=== PATIENT | female | born 1975 | race Two or more races ===

== ENCOUNTER 2019-12-03 17:59 | Emergency (ER) | payer MEDICAID ==
[~2019-12-03] VITALS: Ht 157.5 cm; Wt 127.0 kg
[~2019-12-03 17:59] MED LIST: AMLO5TAB4; BENA40TA65; BUSCAPINA; CLON0.1T; CLOTRIMAZOLE; EXCEDRIN PM; HYDROCORTISONE CREAM; METO-540; NITRO; PEN V K; SIMV20TA6; [UNRECOGNIZED DRUG - OTHER]
[2019-12-03 18:15] VITALS: BP_SYST 207
--- NOTE | 2019-12-03 18:15 | NUR ---
Patient to ER bed 07 to gown for evaluation. Side rails up.
--- NOTE | 2019-12-03 18:16 | NUR ---
Pt brought by self, A&Ox4, pt presents to ER with L earache and high blood pressure, pt afebrile, skin pink and warm, cap refill <3, VSS, BP 161/94.
--- NOTE | 2019-12-03 18:20 | NUR ---
Dr Bush at bedside examining patient
[2019-12-03] MEDS ORDERED: hydrALAZINE HCL 20 MG/ML VIAL IVP ONE (18:30)
[2019-12-03] MEDS ORDERED: ENALAPRILAT DIHYDRATE 1.25 MG/ML VIAL IVP ONE (18:30)
[2019-12-03] MEDS ORDERED: MECLIZINE HCL 25 MG TABLET (ANITVERT) PO ONE (18:45)
[2019-12-03 18:55] VITALS: BP_SYST 158
--- NOTE | 2019-12-03 18:57 | NUR ---
Patient given written and verbal discharge instructions and verbalizes understanding. ER MD discussed with patient the results and treatment provided. Patient in stable condition. ID arm band removed. Rx of Augmentin and Antivert given. Patient educated on pain management and to follow up with PMD. Pain Scale 2/10 tolerable for patient. Opportunity for questions provided and answered. Medication side effect fact sheet provided.
== END 2019-12-03 18:55 | disposition home or self-care (01) ==
LOC: SED 17:59
DX: H66.92 Otitis media, unspecified, left ear (principal); R42 Dizziness and giddiness; I10 Essential (primary) hypertension; Z87.440 Personal history of urinary (tract) infections; Z79.899 Other long term (current) drug therapy
CPT/HCPCS: 99283; J8597

== ENCOUNTER 2019-12-15 07:07 | Emergency (ER) | payer MEDICAID, SELFPAY ==
[~2019-12-15] VITALS: Ht 157.5 cm; Wt 127.0 kg
--- NOTE | 2019-12-15 07:10 | NUR ---
Pt placed on tent at this time
--- NOTE | 2019-12-15 07:12 | NUR ---
Pt brought by self,A&Ox4, pt presents to ER with headache, cough and congestion, pt has a recent ear infection, pt also has Hx of HTN, skin pink and warm, cap refill<3, VSS, respirations even and unlabored.
[2019-12-15 07:28] VITALS: BP_SYST 222
[2019-12-15] MEDS ORDERED: cloNIDine HCL 0.1 MG TABLET PO ONE (07:45)
--- NOTE | 2019-12-15 08:45 | NUR ---
Pt BP improving at this time, states headache is getting better , MD notified.
[2019-12-15 09:13] VITALS: BP_SYST 166
--- NOTE | 2019-12-15 09:14 | NUR ---
Patient given written and verbal discharge instructions and verbalizes understanding. ER MD discussed with patient the results and treatment provided. Patient in stable condition. ID arm band removed. No Rx given. Patient educated on pain management and to follow up with PMD. Pain Scale 3/10. Opportunity for questions provided and answered. Medication side effect fact sheet provided.
== END 2019-12-15 09:13 | disposition home or self-care (01) ==
LOC: SED 07:07
DX: U07.1 COVID-19 (principal); I16.0 Hypertensive urgency
CPT/HCPCS: 99283; U0003; C9803-CS

== ENCOUNTER 2020-05-09 18:22 | Inpatient (IN) | payer MEDICAID, SELFPAY ==
[~2020-05-09] VITALS: Ht 157.5 cm; Wt 126.6 kg
[~2020-05-09 18:22] MED LIST changes: +SIMV-43; -SIMV20TA6
[2020-05-09 18:36] VITALS: BP_SYST 148
--- NOTE | 2020-05-09 18:40 | NUR ---
Patient triaged and placed in waiting room. VSS and patient appears in no acute distress at this time. Awaiting available bed, and MD notified of need for MSE.
[2020-05-09 19:09] LABS: LYMPHOCYTES # (AUTO) 2.4 K/uL (1.0-5.5)
[2020-05-09 19:19] LABS: MONOCYTES # (AUTO) 0.8 K/uL (0.0-1.0)
[2020-05-09 19:29] LABS: CALCIUM 8.7 mg/dL (8.4-11.0); CREATININE 0.89 mg/dL (0.55-1.30); POTASSIUM 3.5 mmol/L (3.5-5.1)
[2020-05-09 19:31] LABS: BASOPHILS % (AUTO) 0.4 % (0.0-2.0); EOSINOPHILS # (AUTO) 0.1 K/uL (0.0-0.4); EOSINOPHILS % (AUTO) 1.3 % (0.0-4.0); HEMATOCRIT 37.6 % (36-48); LYMPHOCYTES % (AUTO) 22.2 % (20.5-51.5); MEAN CORPUSCULAR HEMOGLOBIN 24 pg (27-31); MEAN CORPUSCULAR HGB CONC 32 % (32-36); MEAN CORPUSCULAR VOLUME 75 fL (79.0-98.0); MONOCYTES % (AUTO) 7.2 % (1.7-9.3); NEUTROPHILS # (AUTO) 7.6 K/uL (1.8-7.7); NEUTROPHILS % (AUTO) 68.9 % (40.0-70.0); PLATELET COUNT (AUTO) 296 K/uL (130-430); RED BLOOD CELL COUNT(AUTO) 5.02 MIL/uL (4.2-6.2); RED CELL DISTRIBUTION WIDTH 15.5 % (9.0-15.0)
[2020-05-09 19:36] LABS: ALBUMIN 3.6 g/dL (3.4-4.8); TOTAL BILIRUBIN 0.2 mg/dL (0.0-1.0)
[2020-05-09 19:43] LABS: BILIRUBIN,URINE NEGATIVE (NEGATIVE); COLOR,URINE YELLOW (YELLOW); GLUCOSE,URINE NEGATIVE (NEGATIVE); KETONES,URINE NEGATIVE (NEGATIVE); LEUKOCYTE ESTERASE ,URINE NEGATIVE (NEGATIVE); NITRITE, URINE NEGATIVE (NEGATIVE); PROTEIN URINE NEGATIVE (NEGATIVE); UROBILINOGEN,URINE 0.2 (0.2-1.0)
[2020-05-09 19:46] LABS: BLOOD, URINE TRACE (NEGATIVE); CLARITY/URINE SLIGHTLY HAZY (CLEAR)
--- NOTE | 2020-05-09 19:48 | NUR ---
Sumanth bennett in EDM - 05/09/20 at 1949 by SDEDCJM MARYANN Mcgarry at bedside examining patient.
--- NOTE | 2020-05-09 19:48 | NUR ---
Patient to ER bed 01 to gown for evaluation. Side rails up. Report given to BUBBA FERNANDEZ
--- NOTE | 2020-05-09 19:48 | NUR ---
ER at bedside examining patient.
[2020-05-09 19:52] LABS: BACTERIA,URINE FEW /HPF (None Seen); MUCUS,URINE None Seen /LPF (None Seen); RBC,URINE 0-3 /HPF (0-3); WBC,URINE 0-3 /HPF (0-3)
[2020-05-09] MEDS ORDERED: NACL 0.9% 1,000 ML IV ONE (20:00)
--- NOTE | 2020-05-09 20:00 | NUR ---
# 20 gauge angiocath placed to LEFT WRIST. Use of asceptic technique. Opsite placed over site. Blood return noted. Blood for lab drawn from site. Flushed with 10 cc of normal saline. No evidence of infiltration noted. Patient tolerated well.
[2020-05-09] MEDS ORDERED: ONDANSETRON HCL 4 MG/2 ML VIAL IVP ONE (20:15)
[2020-05-09] MEDS ORDERED: MORPHINE 4 MG/ML INJ. SYRINGE IVP ONE (20:15)
[2020-05-09] MEDS ORDERED: metroNIDAZOLE 500 mg/NS 100 ML IV ONE (20:15)
--- NOTE | 2020-05-09 20:16 | NUR ---
COVID SWAB COLLECTED AND SENT TO LAB.
[2020-05-09] MEDS ORDERED: cefTRIAXone 2 GM VIAL ONE (20:17)
--- NOTE | 2020-05-09 20:30 | NUR ---
Blood cultures drawn, prior to administration of antibiotic.
--- NOTE | 2020-05-09 20:36 | NUR ---
Assumed care of patient, report received. Introduced self to patient, positioned for comfort and safety w/ bed to low position sr up. Patient states has been having mid abd pain ongonig x4 days w/ decreased in appetite and mild nausea. patient started on iv abx and given pain medication. Continue to monitor patient level of comfort. Will observe for any adverse reaction. Iv site patent and intact.
--- NOTE | 2020-05-09 20:53 | NUR ---
RECEIVED ADMIT ORDERS FROM DR. HENSLEY.
--- NOTE | 2020-05-09 20:56 | NUR ---
SPOKE WITH PSYCHOLOGY TEACHERPAGE TO REQUEST [facility] BED.
--- NOTE | 2020-05-09 20:57 | NUR ---
Patient will be admitted to care of GEREBR. Admitted to M/S unit. Will go to room 106B. Belongings list completed. Complete and up to date summary report printed. SBAR report to be given at bedside with opportunity for questions.
[2020-05-09] MEDS ORDERED: ENALAPRILAT DIHYDRATE 1.25 MG/ML VIAL ONE (21:21)
--- NOTE | 2020-05-09 21:25 | NUR ---
patient medicated as ordered with 2.5mg of Vasotec ivp for elevated b/p 174/118. Patient w/ no neuro focal deficits or symptoms. Will observe for any adverse reaction. Bed to low position sr up, continue to monitor level of comfort and b/p
[2020-05-09] MEDS ORDERED: ENALAPRILAT DIHYDRATE 1.25 MG/ML VIAL IVP ONE (21:30)
[2020-05-09] MEDS ORDERED: CARV25TA55 PO (21:31)
[2020-05-09] MEDS ORDERED: LIP20 PO (21:31)
[2020-05-09] MEDS ORDERED: TRIA1TAB96 PO (21:31)
--- NOTE | 2020-05-09 21:39 | NUR ---
Report called and given to Fallon MAC who was informed that patient b/p 174/118 but was medicated w/ vasotec 2.5mg ivp. Will retake b/p at 2200, should b/p be in a downward trend patient will be transferred to 106B but if no change in b/p will reassess patient till b/p becomes stable. Fallon verbalized understanding.
--- NOTE | 2020-05-09 22:16 | NUR ---
Left arm b/p noted at 143/91 after being medicated w/ Vasotec 2.5mg ivp. patient w/ no adverse reaction noted to medication. No neuro focal deficits noted. OK to transfer to Med/Surg.
--- NOTE | 2020-05-09 22:17 | NUR ---
Patient will be admitted to care of MD Hamlin/Shira. Admitted to unit. Will go to room . Belongings list completed. Complete and up to date summary report printed. SBAR report to be given at bedside with opportunity for questions.
--- NOTE | 2020-05-09 22:29 | NUR ---
ADMISSION NOTE Received patient from ER via theodora, received report from BUBBA RIDLEY. Patient admitted with diagnosis of Diverticulitis. Patient oriented to hospital routine, call light, toileting and safety-patient verbalized understanding.
[2020-05-09 22:59] VITALS: BP_SYST 173
[2020-05-09] MEDS ORDERED: MORPHINE 4 MG/ML INJ. SYRINGE IVP PRN (23:15)
[2020-05-09] MEDS ORDERED: HYDROcodone/ACETAMIN 5-325 MG TAB (NORCO/ VICODIN) PO PRN (23:15)
[2020-05-09] MEDS ORDERED: ONDANSETRON HCL 4 MG/2 ML VIAL IVP PRN (23:15)
[2020-05-09] MEDS ORDERED: ALBUTEROL SULFATE 0.083% 2.5 MG/3 ML VIAL.NEB INH PRN (23:15)
[2020-05-09] MEDS ORDERED: NALOXONE HCL 0.4 MG/ML AMP (NARCAN) IVP PRN (23:15)
[2020-05-10] VITALS (7 sets, daily range): BP systolic 121–150
[2020-05-10] MEDS ORDERED: PIPERACILLIN/TAZOBACTAM 3.375 GM/VIAL (ZOSYN) IV ONE (00:23)
[2020-05-10] MEDS: NACL 0.9% 1,000 ML IV SCH ×3 (00:45→15:37)
[2020-05-10] MEDS: PIPERACILLIN/TAZO 3.375/DEX-IS 50 ML IV SCH ×4 (00:46→17:24)
--- NOTE | 2020-05-10 02:53 | NUR ---
Rounds: Patient is sleeping comfortably in bed. No acute distress on room air, even and unlabored breathing. IV fluids infusing well without infiltration. Call light is with patient. Will continue to monitor.
[2020-05-10] MEDS: ACETAMINOPHEN 325 MG TABLET PO PRN ×2 (04:33→09:29)
[2020-05-10 06:34] LABS: BASOPHILS % (AUTO) 0.3 % (0.0-2.0); EOSINOPHILS # (AUTO) 0.1 K/uL (0.0-0.4); EOSINOPHILS % (AUTO) 1.5 % (0.0-4.0); HEMATOCRIT 34.8 % (36-48); HEMOGLOBIN 11.4 g/dL (12.0-16.0); LYMPHOCYTES # (AUTO) 1.8 K/uL (1.0-5.5); LYMPHOCYTES % (AUTO) 20.4 % (20.5-51.5); MEAN CORPUSCULAR HEMOGLOBIN 24 pg (27-31); MEAN CORPUSCULAR HGB CONC 33 % (32-36); MEAN CORPUSCULAR VOLUME 74 fL (79.0-98.0); MONOCYTES # (AUTO) 0.6 K/uL (0.0-1.0); MONOCYTES % (AUTO) 6.5 % (1.7-9.3); NEUTROPHILS # (AUTO) 6.3 K/uL (1.8-7.7); NEUTROPHILS % (AUTO) 71.3 % (40.0-70.0); PLATELET COUNT (AUTO) 272 K/uL (130-430); RED BLOOD CELL COUNT(AUTO) 4.68 MIL/uL (4.2-6.2); RED CELL DISTRIBUTION WIDTH 15.4 % (9.0-15.0); WHITE BLOOD COUNT (AUTO) 8.8 K/uL (4.8-10.8)
--- NOTE | 2020-05-10 06:39 | NUR ---
Closing note: Patient is awake in bed, no acute distress. Even, unlabored breathing on room air. IV fluids infusing without infiltration. All needs met. Safety, fall precautions in place. Will endorse care to dayshift RN.
[2020-05-10 07:14] LABS: ALBUMIN 3.1 g/dL (3.4-4.8); CALCIUM 8.5 mg/dL (8.4-11.0); CREATININE 0.89 mg/dL (0.55-1.30); POTASSIUM 3.7 mmol/L (3.5-5.1); TOTAL BILIRUBIN 0.6 mg/dL (0.0-1.0)
[2020-05-10] MEDS ORDERED: SIMVASTATIN 20 MG TABLET PO SCH (09:00)
[2020-05-10] MEDS ORDERED: PANTOPRAZOLE SODIUM 40 MG/VIAL (PROTONIX) IVP SCH (09:00)
[2020-05-10] MEDS ORDERED: ATORVASTATIN 20 MG TABLET PO SCH (09:00)
[2020-05-10] MEDS ORDERED: CARVEDILOL 25 MG TABLET (COREG) PO SCH (09:00)
[2020-05-10] MEDS ORDERED: LISINOPRIL 10 MG TABLET (PRINIVIL) PO SCH (09:00)
[2020-05-10] MEDS ORDERED: METOPROLOL SUCCINATE 25 MG TAB.SR.24H (TOPROL XL) PO SCH (09:00)
--- NOTE | 2020-05-10 09:49 | NUR ---
CONSULTATION PAGED/CALLED Reason for Consultation: DIVERTICULITIS Person Who was Notified: BRANDON Consulting Physician: TAMELA DUNLAP Ordering Physician: GERBER
--- NOTE | 2020-05-10 16:13 | NUR ---
Dr. Victor here to assess pt for surgical consult. Pt cleared by Dr. Victor for discharge if pt tolerates dinner. Paged Dr. Pope re: the same. Awaiting response. Addendum: 05/10/20 at 1616 by [facility] print shop stenographer Dr. DUNLAP here to assess pt for surgical consult. Pt cleared by Dr. DUNLAP for discharge if pt tolerates dinner. Paged Dr. Pope re: the same. Awaiting response. here to assess pt for surgical consult. Pt cleared by Dr. Victor for discharge if pt tolerates dinner. Paged Dr. Niko levine: the same. Awaiting response.
--- NOTE | 2020-05-10 16:16 | NUR ---
Notified Dr. Pope re: pt cleared by Dr. Miramontes for discharge with oral antibiotics if pt's tolerates dinner. See new orders.
--- NOTE | 2020-05-10 16:47 | NUR ---
PAGED PAGED GERBER DAVIDSON RAJNISH AT [phone] SPOKE WITH NAYAN.
[2020-05-10] MEDS ORDERED: METR500T PO (17:00)
[2020-05-10] MEDS ORDERED: LEVO500T89 PO (17:00)
--- NOTE | 2020-05-10 18:41 | NUR ---
Discharge instructions given to pt. Pt verbalized understanding. PIV removed. NO adverse events during shift. Pt safety maintained during shift.
--- NOTE | 2020-05-10 18:52 | NUR ---
Accompanied pt via W/C to personal vehicle. Pt's son picked up pt. Pt safely discharged.
== END 2020-05-10 18:52 | disposition home or self-care (01) | DRG 244 ==
LOC: SED 18:22 → SMU 20:53
PROVIDERS: ADMIT Internal Medicine Hospice and Palliative Medicine; ATTEND Internal Medicine Hospice and Palliative Medicine
DX: K57.92 Diverticulitis of intestine, part unspecified, without perforation or abscess without bleeding (principal); E11.9 Type 2 diabetes mellitus without complications; I10 Essential (primary) hypertension; E78.5 Hyperlipidemia, unspecified; Z20.828 Contact with and (suspected) exposure to other viral communicable diseases; E78.00 Pure hypercholesterolemia, unspecified; Z79.899 Other long term (current) drug therapy; Z90.49 Acquired absence of other specified parts of digestive tract; Z83.3 Family history of diabetes mellitus; Z98.84 Bariatric surgery status
CPT/HCPCS: 36415; 76376; 80053; 81000-TC; 83605; 85025; 87040-TC; 96365; 96375; 99285; C9113; J0696; J2270; J2405; J2543; J3490

== ENCOUNTER 2021-11-11 20:36 | Inpatient (IN) | payer MEDICAID ==
[~2021-11-11] VITALS: Ht 157.5 cm; Wt 133.4 kg
[~2021-11-11 20:36] MED LIST changes: +CARV25TA55 PO; +LEVO500T90 PO; +LIP20 PO; -METO-540; +METR500T PO; -SIMV-43; +TRIA1TAB96 PO
[2021-11-11 20:54] VITALS: BP_SYST 163
[2021-11-11 22:12] LABS: BASOPHILS % (AUTO) 0.3 % (0.0-2.0); EOSINOPHILS # (AUTO) 0.1 K/uL (0.0-0.4); EOSINOPHILS % (AUTO) 0.5 % (0.0-4.0); HEMATOCRIT 37.8 % (36-48); HEMOGLOBIN 12.8 g/dL (12.0-16.0); LYMPHOCYTES # (AUTO) 2.1 K/uL (1.0-5.5); LYMPHOCYTES % (AUTO) 14.3 % (20.5-51.5); MEAN CORPUSCULAR HEMOGLOBIN 25 pg (27-31); MEAN CORPUSCULAR HGB CONC 34 % (32-36); MEAN CORPUSCULAR VOLUME 73 fL (79.0-98.0); MONOCYTES # (AUTO) 1.2 K/uL (0.0-1.0); MONOCYTES % (AUTO) 8.1 % (1.7-9.3); NEUTROPHILS # (AUTO) 11.1 K/uL (1.8-7.7); NEUTROPHILS % (AUTO) 76.8 % (40.0-70.0); PLATELET COUNT (AUTO) 407 K/uL (130-430); RED CELL DISTRIBUTION WIDTH 15.9 % (9.0-15.0); WHITE BLOOD COUNT (AUTO) 14.4 K/uL (4.8-10.8)
[2021-11-11 22:38] LABS: CALCIUM 8.3 mg/dL (8.4-11.0); CREATININE 2.44 mg/dL (0.55-1.30); POTASSIUM 3.4 mmol/L (3.5-5.1)
[2021-11-11 22:44] LABS: ALBUMIN 3.4 g/dL (3.4-4.8); TOTAL BILIRUBIN 0.3 mg/dL (0.0-1.0)
[2021-11-11] MEDS ORDERED: MORPHINE 4 MG INJ. 4 MG/ML VIAL IVP ONE (23:45)
[2021-11-11] MEDS ORDERED: ONDANSETRON HCL 4 MG/2 ML VIAL IVP ONE (23:45)
[2021-11-11] MEDS ORDERED: NACL 0.9% 1,000 ML IV ONE (23:45)
[2021-11-12] MEDS ORDERED: LOSA100T3 PO (03:49)
[2021-11-12] MEDS ORDERED: METF-518 PO (03:51)
[2021-11-12] MEDS ORDERED: LIP20 PO (03:51)
[2021-11-12] MEDS ORDERED: HYG25 PO (03:51)
[2021-11-12] MEDS ORDERED: COR25 PO (03:55)
[2021-11-12] MEDS ORDERED: TRIA1CAP6 PO (03:55)
[2021-11-12] MEDS ORDERED: TRIA1TAB96 PO (03:55)
[2021-11-12 03:57] LABS: BILIRUBIN,URINE 1+ (NEGATIVE); CLARITY/URINE CLEAR (CLEAR); COLOR,URINE YELLOW (YELLOW); GLUCOSE,URINE NEGATIVE (NEGATIVE); KETONES,URINE 1+ (NEGATIVE); LEUKOCYTE ESTERASE ,URINE TRACE (NEGATIVE); NITRITE, URINE NEGATIVE (NEGATIVE); PROTEIN URINE 1+ (NEGATIVE); UROBILINOGEN,URINE 0.2 (0.2-1.0)
[2021-11-12 04:00] LABS: BLOOD, URINE TRACE (NEGATIVE)
[2021-11-12 04:31] LABS: BACTERIA,URINE MODERATE /HPF (None Seen); RBC,URINE 50-80 /HPF (0-3); WBC,URINE 80-100 /HPF (0-3); YEAST,URINE Few /HPF (None Seen)
[2021-11-12 04:32] LABS: MUCUS,URINE 3+ /LPF (None Seen)
[2021-11-12] MEDS ORDERED: NACL 0.9% 1,000 ML IV ONE (05:30)
[2021-11-12] MEDS ORDERED: PIPERACILLIN/TAZO 3.375 GM in NS 50 ML IV ONE (05:45)
[2021-11-12] MEDS ORDERED: PIPERACILLIN/TAZOBACTAM 3.375 GM/VIAL (ZOSYN) IV ONE (05:51)
[2021-11-12] MEDS ORDERED: ONDANSETRON HCL 4 MG/2 ML VIAL IVP PRN (06:00)
[2021-11-12] MEDS ORDERED: D5/0.45 NS 1,000 ML IV ONE (06:00)
[2021-11-12 06:42] LABS: CALCIUM 7.5 mg/dL (8.4-11.0); CREATININE 3.16 mg/dL (0.55-1.30); POTASSIUM 3.4 mmol/L (3.5-5.1)
[2021-11-12 07:10] VITALS: BP_SYST 116
[2021-11-12 08:00] VITALS: BP_SYST 108
[2021-11-12 09:56] VITALS: BP_SYST 108
[2021-11-12 11:28] VITALS: BP_SYST 104
[2021-11-12] MEDS: MORPHINE 2 MG/ML INJ. SYRINGE IVP PRN (12:56)
[2021-11-12 15:33] VITALS: BP_SYST 132
[2021-11-12 15:37] VITALS: BP_SYST 133
[2021-11-12] MEDS: NACL 0.9% 1,000 ML IV SCH (16:15)
[2021-11-12] MEDS: metroNIDAZOLE 500 mg/NS 100 ML IV SCH ×2 (16:20→22:47)
[2021-11-12] MEDS: hydrALAZINE HCL 25 MG TABLET PO SCH (22:46)
[2021-11-12] MEDS: CARVEDILOL 25 MG TABLET (COREG) PO SCH (22:48)
[2021-11-13] MEDS: NACL 0.9% 1,000 ML IV SCH ×4 (02:17→16:13)
[2021-11-13] MEDS: hydrALAZINE HCL 25 MG TABLET PO SCH ×3 (07:00→21:52)
[2021-11-13 08:17] LABS: ALBUMIN 2.7 g/dL (3.4-4.8); CALCIUM 7.1 mg/dL (8.4-11.0); CREATININE 3.32 mg/dL (0.55-1.30); POTASSIUM 3.2 mmol/L (3.5-5.1); TOTAL BILIRUBIN 0.2 mg/dL (0.0-1.0)
[2021-11-13 08:39] LABS: BASOPHILS % (AUTO) 0.2 % (0.0-2.0); EOSINOPHILS % (AUTO) 0.5 % (0.0-4.0); HEMATOCRIT 31.5 % (36-48); HEMOGLOBIN 10.5 g/dL (12.0-16.0); LYMPHOCYTES # (AUTO) 1.5 K/uL (1.0-5.5); LYMPHOCYTES % (AUTO) 17.5 % (20.5-51.5); MEAN CORPUSCULAR HEMOGLOBIN 25 pg (27-31); MEAN CORPUSCULAR HGB CONC 34 % (32-36); MEAN CORPUSCULAR VOLUME 74 fL (79.0-98.0); MONOCYTES # (AUTO) 0.8 K/uL (0.0-1.0); MONOCYTES % (AUTO) 9.2 % (1.7-9.3); NEUTROPHILS # (AUTO) 6.1 K/uL (1.8-7.7); NEUTROPHILS % (AUTO) 72.6 % (40.0-70.0); PLATELET COUNT (AUTO) 267 K/uL (130-430); RED BLOOD CELL COUNT(AUTO) 4.28 MIL/uL (4.2-6.2); RED CELL DISTRIBUTION WIDTH 15.5 % (9.0-15.0); WHITE BLOOD COUNT (AUTO) 8.4 K/uL (4.8-10.8)
[2021-11-13] MEDS ORDERED: ESCITALOPRAM OXALATE 10 MG TABLET PO SCH (09:00)
[2021-11-13] MEDS: CITALOPRAM HYDROBROMIDE 20 MG TABLET PO SCH (09:20)
[2021-11-13] MEDS: CARVEDILOL 25 MG TABLET (COREG) PO SCH ×2 (09:20→21:53)
[2021-11-13] MEDS: amLODIPine BESYLATE 10 MG TABLET PO SCH (09:21)
[2021-11-13] MEDS: ATORVASTATIN 20 MG TABLET PO SCH (09:21)
[2021-11-13] MEDS: metroNIDAZOLE 500 mg/NS 100 ML IV SCH ×3 (09:22→22:26)
[2021-11-13] MEDS: MORPHINE 2 MG/ML INJ. SYRINGE IVP PRN ×3 (09:35→22:27)
[2021-11-13] MEDS ORDERED: FLUCONAZOLE 200 mg/ NS 100 ML IV ONE (13:00)
[2021-11-13] MEDS: cefTRIAXone 1 GM in D5W 50 ML IV SCH (14:09)
[2021-11-13 16:00] VITALS: BP_SYST 133
[2021-11-13] MEDS ORDERED: POTASSIUM CHLORIDE 20 MEQ TAB.PRT.SR PO ONE (16:30)
[2021-11-13 20:00] VITALS: BP_SYST 131
[2021-11-14] VITALS: BP_SYST 127
[2021-11-14] MEDS: NACL 0.9% 1,000 ML IV SCH ×2 (00:22→06:46)
[2021-11-14] MEDS: metroNIDAZOLE 500 mg/NS 100 ML IV SCH ×2 (06:06→14:00)
[2021-11-14] MEDS: hydrALAZINE HCL 25 MG TABLET PO SCH ×2 (06:45→14:00)
[2021-11-14] MEDS: amLODIPine BESYLATE 10 MG TABLET PO SCH (09:42)
[2021-11-14] MEDS: ATORVASTATIN 20 MG TABLET PO SCH (09:43)
[2021-11-14] MEDS: CITALOPRAM HYDROBROMIDE 20 MG TABLET PO SCH (09:43)
[2021-11-14] MEDS: CARVEDILOL 25 MG TABLET (COREG) PO SCH (09:43)
[2021-11-14 10:17] LABS: BASOPHILS % (AUTO) 0.3 % (0.0-2.0); EOSINOPHILS # (AUTO) 0.2 K/uL (0.0-0.4); EOSINOPHILS % (AUTO) 1.9 % (0.0-4.0); HEMATOCRIT 31.6 % (36-48); HEMOGLOBIN 10.9 g/dL (12.0-16.0); LYMPHOCYTES # (AUTO) 1.4 K/uL (1.0-5.5); LYMPHOCYTES % (AUTO) 17.1 % (20.5-51.5); MEAN CORPUSCULAR HEMOGLOBIN 25 pg (27-31); MEAN CORPUSCULAR HGB CONC 35 % (32-36); MEAN CORPUSCULAR VOLUME 72 fL (79.0-98.0); MONOCYTES # (AUTO) 0.6 K/uL (0.0-1.0); MONOCYTES % (AUTO) 6.9 % (1.7-9.3); NEUTROPHILS # (AUTO) 6.1 K/uL (1.8-7.7); NEUTROPHILS % (AUTO) 73.8 % (40.0-70.0); PLATELET COUNT (AUTO) 299 K/uL (130-430); RED BLOOD CELL COUNT(AUTO) 4.38 MIL/uL (4.2-6.2); RED CELL DISTRIBUTION WIDTH 15.4 % (9.0-15.0); WHITE BLOOD COUNT (AUTO) 8.3 K/uL (4.8-10.8)
[2021-11-14 10:20] LABS: CREATININE 1.6 mg/dL (0.55-1.30)
[2021-11-14 10:25] LABS: TOTAL BILIRUBIN 0.2 mg/dL (0.0-1.0)
[2021-11-14 11:36] LABS: POTASSIUM 2.9 mmol/L (3.5-5.1)
[2021-11-14 13:13] VITALS: BP_SYST 140
[2021-11-14] MEDS ORDERED: NOR10 PO (13:30)
[2021-11-14] MEDS ORDERED: METR-154 PO (13:30)
[2021-11-14] MEDS ORDERED: POTASSIUM CHLORIDE 20 MEQ TAB.PRT.SR PO ONE (13:30)
[2021-11-14] MEDS ORDERED: LEVO750T45 PO (13:30)
[2021-11-14] MEDS ORDERED: COR25 PO (13:31)
[2021-11-14] MEDS ORDERED: HYDR-4039 PO (13:31)
[2021-11-14 13:36] VITALS: BP_SYST 140
[2021-11-14] MEDS: cefTRIAXone 1 GM in D5W 50 ML IV SCH (14:00)
== END 2021-11-14 17:52 | disposition home or self-care (01) | DRG 244 ==
LOC: SED 20:36 → SMU 11-12 05:52
PROVIDERS: ADMIT Family Medicine; ATTEND Family Medicine
DX: K57.92 Diverticulitis of intestine, part unspecified, without perforation or abscess without bleeding (principal); N17.0 Acute kidney failure with tubular necrosis; R65.11 Systemic inflammatory response syndrome (SIRS) of non-infectious origin with acute organ dysfunction; E11.22 Type 2 diabetes mellitus with diabetic chronic kidney disease; Z68.43 Body mass index [BMI] 50.0-59.9, adult; A09 Infectious gastroenteritis and colitis, unspecified; E78.5 Hyperlipidemia, unspecified; E66.01 Morbid (severe) obesity due to excess calories; I12.9 Hypertensive chronic kidney disease with stage 1 through stage 4 chronic kidney disease, or unspecified chronic kidney disease; N39.0 Urinary tract infection, site not specified; G89.29 Other chronic pain; N18.9 Chronic kidney disease, unspecified; Z20.822 Contact with and (suspected) exposure to COVID-19; Z98.84 Bariatric surgery status
CPT/HCPCS: 36415; 76376; 76830-TC; 76857; 80048; 80053; 81000; 83605; 83690; 84702; 85025; 87045-TC; 87046; 87086; 87177; 87230-TC; 96361; 96365; 96375; 99285; J0696; J1450; J1956; J2270; J2405; J2543; J3490; J7030; J7060